=== PATIENT | female | born 1990 | race Asian ===

== ENCOUNTER → 2023-06-21 10:14 | Outpatient (REF) | payer BC, SELFPAY | LOC: CLAB 10:14 | PROVIDERS: ATTENDING PHYSICIAN Obstetrics & Gynecology | DX: Z34.90 Encounter for supervision of normal pregnancy, unspecified, unspecified trimester (principal) | CPT/HCPCS: 87070 ==

== ENCOUNTER 2023-07-01 22:46 | Observation (INO) | payer BC, SELFPAY ==
[2023-07-01 23:02] VITALS: BMI 29.3
[2023-07-01 23:04] VITALS: BP 140/72
== END 2023-07-02 01:08 | disposition home or self-care (01) ==
LOC: LDRP 22:46
PROVIDERS: ADMITTING PHYSICIAN Obstetrics & Gynecology
DX: O36.8130 Decreased fetal movements, third trimester, not applicable or unspecified (principal); Z3A.37 37 weeks gestation of pregnancy
CPT/HCPCS: 76815

== ENCOUNTER 2023-07-19 04:59 | Inpatient (IN) | payer BC, SELFPAY ==
[2023-07-19 05:25] VITALS: BP 134/85; BMI 29.3
[2023-07-19] MEDS: LR 1000 IV ×4 (06:00→20:08)
[2023-07-19 06:38] LABS: % Basophils 0.4 % (0-2); % Eosinophils 0.6 % (0-6); % Immature Granulocytes 0.5 % (0-0.5); % Lymphocytes 19.6 % (20.5-51.1); % Monocytes 6.1 % (1.7-9.3); % Neutrophils 72.8 % (42.2-75.2); Absolute Basophils 0.1 10^3/uL (0-0.2); Absolute Eosinophils 0.1 10^3/uL (0-0.7); Absolute Immature Granulocytes 0.1 10^3/uL (0-0.05); Absolute Lymphocytes 2.4 10^3/uL (1.2-3.4); Absolute Monocytes 0.8 10^3/uL (0.1-0.6); Hematocrit 31.5 % (37.0-47.0); Hemoglobin 10.3 g/dL (12.0-16.0); Mean Corp Hgb Conc. 32.7 g/dL (33.0-37.0); Mean Corpuscular Hgb 25.1 pg (27.0-31.0); Mean Corpuscular Volume 76.6 fL (81.0-99.0); Mean Platelet Volume 10.7 fL (7.4-10.4); Nucleated Red Blood Cells % 0 %; Platelet Count 278 10^3/uL (130-400); Red Blood Cell Count 4.11 10^6/uL (4.20-5.40); Red Cell Dist. Width 13.4 % (11.5-14.5); White Blood Cell Count 12.4 10^3/uL (4.8-10.8)
[2023-07-19] MEDS: SUBLIMAZE 100 MCG EPIDURAL (13:00)
[2023-07-19] MEDS: PITOCIN 30 UNITS/NSS 500 ML IV (17:48)
[2023-07-19] MEDS: ZOFRAN 4 MG IV (20:07)
[2023-07-19] MEDS: FENTANYL/BUPIVACAINE 100 EPIDURAL (20:34)
[2023-07-20] MEDS: FENTANYL/BUPIVACAINE 100 EPIDURAL (04:50)
[2023-07-20] MEDS: LR 1000 IV (06:22)
[2023-07-20] MEDS: MOTRIN 600 MG PO (20:00)
[2023-07-20] MEDS: SENOKOT-S 1 TABLET PO (20:01)
[2023-07-20] MEDS: TYLENOL 650 MG PO (20:01)
[2023-07-20] MEDS: PREPARATION H OINTMENT 1 APPLIC RECTAL (20:52)
[2023-07-21] MEDS: MOTRIN 600 MG PO ×2 (05:01→21:09)
[2023-07-21 05:19] LABS: Hematocrit 25.9 % (37.0-47.0); Hemoglobin 8.5 g/dL (12.0-16.0)
[2023-07-21] MEDS: FEOSOL 325 MG PO ×2 (08:21→20:28)
[2023-07-22] MEDS: SENOKOT-S 1 TABLET PO (08:20)
[2023-07-22] MEDS: FEOSOL 325 MG PO (08:20)
[2023-07-22 12:39] LABS: Syphilis/T. pallidum Ab Reflex Negative (Negative)
== END 2023-07-22 11:35 | disposition home or self-care (01) | DRG 807 ==
LOC: LDRP 04:59
PROVIDERS: Obstetrics & Gynecology; ADMITTING PHYSICIAN Obstetrics & Gynecology
PROC: 10E0XZZ Delivery of Products of Conception, External Approach (ICD-10-PCS; 2023-07-20)
PROC: 0UQMXZZ Repair Vulva, External Approach (ICD-10-PCS; 2023-07-20)
DX: O48.0 Post-term pregnancy (principal); Z37.0 Single live birth; Z3A.40 40 weeks gestation of pregnancy; O71.82 Other specified trauma to perineum and vulva; O76 Abnormality in fetal heart rate and rhythm complicating labor and delivery; O90.81 Anemia of the puerperium; D64.9 Anemia, unspecified; O69.82X0 Labor and delivery complicated by other cord entanglement, without compression, not applicable or unspecified; Z82.49 Family history of ischemic heart disease and other diseases of the circulatory system
CPT/HCPCS: 85014; 85018; 85025; 86780; 86850; 86900; 86901

== ENCOUNTER → 2023-12-27 09:31 | Outpatient (REF) | payer BC, SELFPAY ==
[2023-12-27 10:40] LABS: % Basophils 0.8 % (0-2); % Eosinophils 2.1 % (0-6); % Immature Granulocytes 0.3 % (0-0.5); % Lymphocytes 36.6 % (20.5-51.1); % Monocytes 7.5 % (1.7-9.3); % Neutrophils 52.7 % (42.2-75.2); Absolute Basophils 0.1 10^3/uL (0-0.2); Absolute Eosinophils 0.2 10^3/uL (0-0.7); Absolute Lymphocytes 2.8 10^3/uL (1.2-3.4); Absolute Monocytes 0.6 10^3/uL (0.1-0.6); Absolute Neutrophils 4.1 10^3/uL (1.4-6.5); Hemoglobin 11.5 g/dL (12.0-16.0); Mean Corp Hgb Conc. 32.9 g/dL (33.0-37.0); Mean Corpuscular Hgb 25.7 pg (27.0-31.0); Mean Corpuscular Volume 78.1 fL (81.0-99.0); Mean Platelet Volume 9.2 fL (7.4-10.4); Nucleated Red Blood Cells % 0 %; Platelet Count 354 10^3/uL (130-400); Red Blood Cell Count 4.48 10^6/uL (4.20-5.40); Red Cell Dist. Width 12.9 % (11.5-14.5); White Blood Cell Count 7.7 10^3/uL (4.8-10.8)
[2023-12-27 10:46] LABS: Urine Albumin Negative (Neg - Trace); Urine Bilirubin Negative (Negative); Urine Character Clear (Clear); Urine Color Yellow; Urine Glucose Negative (Negative); Urine Ketone Negative (Negative); Urine Leukocyte Negative (Negative); Urine Nitrite Negative (Negative); Urine Occult Blood Negative (Negative); Urine Specific Gravity 1.015 (<1.030); Urine Urobilinogen Negative (Neg - 1+)
== END ==
LOC: REG 09:31
PROVIDERS: ATTENDING PHYSICIAN Family Medicine
DX: Z00.00 Encounter for general adult medical examination without abnormal findings (principal); E78.5 Hyperlipidemia, unspecified; R73.09 Other abnormal glucose
CPT/HCPCS: 36415; 81003; 85025

== ENCOUNTER → 2023-12-30 09:25 | Outpatient (REF) | payer BC, SELFPAY ==
[2023-12-30 11:57] LABS: ALT (SGPT) 14 U/L (0-35); AST (SGOT) 26 U/L (14-36); Albumin 4.8 g/dl (3.5-5.0); Alkaline Phosphatase 77 U/L (38-126); Blood Urea Nitrogen 23 mg/dl (7-17); Carbon Dioxide 22 mmol/L (22-30); Chloride 105 mmol/L (98-107); Glucose 91 mg/dl (70-99); HDL Cholesterol 85 mg/dl; LDL Cholesterol, Calculated 99 mg/dl; Potassium 4.5 mmol/L (3.5-5.1); Sodium 140 mmol/L (135-145); Total Bilirubin 0.5 mg/dl (0.2-1.3); Total Cholesterol 199 mg/dl (50-199); Total Protein 7.7 g/dl (6.3-8.2); Triglyceride 75 mg/dl (10-149); Very Low Density Lipoprotein 15 mg/dl (0-30); eGFR > 60.00
[2023-12-30 12:23] LABS: Glycohemoglobin (HgbA1c) 5.7 % (4.0-5.6)
[2023-12-30 12:25] LABS: TSH Reflex To Free T4 2.07 uIU/ml (0.47-4.68)
== END ==
LOC: REG 09:25
PROVIDERS: ATTENDING PHYSICIAN Family Medicine
DX: Z00.00 Encounter for general adult medical examination without abnormal findings (principal); E78.5 Hyperlipidemia, unspecified; R73.09 Other abnormal glucose; E07.9 Disorder of thyroid, unspecified
CPT/HCPCS: 36415; 80053; 80061; 83036; 84443

== ENCOUNTER → 2024-02-28 13:20 | Outpatient (REF) | payer BC, SELFPAY | LOC: CPAP 13:20 | PROVIDERS: ATTENDING PHYSICIAN Obstetrics & Gynecology | DX: Z01.419 Encounter for gynecological examination (general) (routine) without abnormal findings (principal) | CPT/HCPCS: 87624 ==

== ENCOUNTER → 2025-01-22 09:05 | Outpatient (REF) | payer BC, SELFPAY ==
[2025-01-22 10:36] LABS: Urine Character Clear (Clear)
[2025-01-22 10:55] LABS: Hematocrit 39.6 % (37.0-47.0); Hemoglobin 12.5 g/dL (12.0-16.0); Mean Corp Hgb Conc. 31.6 g/dL (33.0-37.0); Mean Corpuscular Volume 82.2 fL (81.0-99.0); Nucleated Red Blood Cells % 0 %; Platelet Count 344 10^3/uL (130-400); Red Cell Dist. Width 12.3 % (11.5-14.5)
[2025-01-22 11:00] LABS: ALT (SGPT) 21 U/L (0-35); AST (SGOT) 24 U/L (14-36); Albumin 4.7 g/dl (3.5-5.0); Alkaline Phosphatase 53 U/L (38-126); Blood Urea Nitrogen 16 mg/dl (7-17); Calcium 9.4 mg/dl (8.4-10.2); Carbon Dioxide 26 mmol/L (22-30); Chloride 106 mmol/L (98-107); Glucose 101 mg/dl (70-99); HDL Cholesterol 58 mg/dl; LDL Cholesterol, Calculated 122 mg/dl; Potassium 4.7 mmol/L (3.5-5.1); Sodium 139 mmol/L (135-145); Total Protein 8.0 g/dl (6.3-8.2); Very Low Density Lipoprotein 29 mg/dl (0-30); eGFR > 60.00
[2025-01-22 11:46] LABS: Glycohemoglobin (HgbA1c) 5.6 % (4.0-5.6)
[2025-01-22 12:18] LABS: Urine Squamous Cell 16-20 /LPF (Few)
[2025-01-22 12:19] LABS: Urine Red Blood Cell 0-2 /HPF (0-2)
== END ==
LOC: REG 09:05
PROVIDERS: ATTENDING PHYSICIAN Family Medicine
DX: Z00.00 Encounter for general adult medical examination without abnormal findings (principal); Z01.419 Encounter for gynecological examination (general) (routine) without abnormal findings
CPT/HCPCS: 36415; 80053; 80061; 81003; 81015; 83036; 84443; 85025